=== PATIENT | female | born 1975 | race Caucasian/White ===

== ENCOUNTER 2016-09-24 13:30 | Emergency (ER) | payer MEDICAID ==
[~2016-09-24] VITALS: Ht 157.5 cm; Wt 59.5 kg
[~2016-09-24 13:30] MED LIST: CLON-364 PO; CLON0.5T PO; DOCU-30 PO; IBUP200T64 PO; IBUP800T PO; OXYC-302 PO; [UNRECOGNIZED DRUG - OTHER] PO; tylenol pm PO
[2016-09-24 15:30] VITALS: BP 106/76
== END 2016-09-24 15:39 | disposition home or self-care (01) ==
LOC: ED 15:30
DX: N60.01 Solitary cyst of right breast (principal)
CPT/HCPCS: 76642; 99284

== ENCOUNTER 2017-05-15 08:23 | Emergency (ER) | payer MEDICAID, OTHER ==
[~2017-05-15] VITALS: Ht 157.5 cm; Wt 58.2 kg
[~2017-05-15 08:23] MED LIST changes: +DOCU-131 PO; -DOCU-30 PO; +IBUP-1223 PO; -IBUP800T PO
[2017-05-15 08:27] VITALS: BP 139/96
== END 2017-05-15 10:26 | disposition home or self-care (01) ==
LOC: ED 09:23
DX: N63.20 Unspecified lump in the left breast, unspecified quadrant (principal); N63.10 Unspecified lump in the right breast, unspecified quadrant; Z90.710 Acquired absence of both cervix and uterus
CPT/HCPCS: 76642; 93005; 99284

== ENCOUNTER 2019-01-17 15:08 | Emergency (ER) | payer SELFPAY ==
[~2019-01-17] VITALS: Ht 157.5 cm; Wt 57.3 kg
[~2019-01-17 15:08] MED LIST changes: -CLON-364 PO; +CLON0.5T11 PO
[2019-01-17 15:27] VITALS: BP 130/93
--- NOTE | 2019-01-17 15:30 | NUR ---
PT AMBULATORY TO RME FROM TRIAGE WITH STEADY GAIT. NAD NOTED. CMS INTACT. PULSE NORMAL AND STRONG. SHAYY ESQUIVEL AT BEDSIDE FOR EVALUATION. CALL LIGHT IN REACH. FALL PREACUTIONS IN PLACE.
--- NOTE | 2019-01-17 15:47 | NUR ---
RAD AT BEDSIDE, TO MEDICATE ONCE COMPLETED WITH IMAGING
[2019-01-17] MEDS ORDERED: ACETAMINOPHEN 325 MG TABLET ONE (15:52)
[2019-01-17] MEDS ORDERED: KETOROLAC 30 MG/1 ML ONE (15:53)
[2019-01-17] MEDS ORDERED: ACETAMINOPHEN 325 MG TABLET PO ONE (16:00)
--- NOTE | 2019-01-17 16:06 | NUR ---
UNABLE TO CHART MEDICATIONS IN EMAR, DISCUSSED WITH PHARMACY, ED SUP DESIRAE AND ALVIN LUCAS. ORDERS VERIFIED WITH SHAYY ESQUIVEL ON ORDER LIST. TORADOL HELD AT THIS TIME DUE TO PT REPORT OF TAKING "1000MG OF IBUPROFEN TWICE TODAY ALREADY, THE LITTLE BROWN ROUND IBUPROFEN, NOT TYLENOL." PT MEDICATED WITH 650MG TYLENOL PO ONCE AT THIS TIME PER SHAYY ESQUIVEL, 5 RIGHTS VERIFIED PRIOR TO ADMIN OF MEDICATION. SHAYY ESQUIVEL AT BEDSIDE DISCUSSING TEST RESULTS AND DISCHARGE POC. RATES PAIN 8/10 IN WRIST.
--- NOTE | 2019-01-17 16:25 | NUR ---
REPORT AND CARE TO ELISABETH SR AT THIS TIME. PT TO BE DISCHARGED PER PA ORDER.EMT AT BEDSIDE FOR SPLINT APPLICATION
[2019-01-17] MEDS ORDERED: KETOROLAC 60 MG/2 ML IM ONE (18:00)
== END 2019-01-17 16:36 ==
LOC: ED 16:30
DX: M65.4 Radial styloid tenosynovitis [de Quervain] (principal); Z90.710 Acquired absence of both cervix and uterus
CPT/HCPCS: 29125; 99283

== ENCOUNTER 2020-02-05 21:11 | Emergency (ER) | payer MEDICAID ==
[~2020-02-05] VITALS: Ht 157.5 cm; Wt 56.1 kg
[~2020-02-05 21:11] MED LIST changes: +CLON-364 PO; -CLON0.5T11 PO
--- NOTE | 2020-02-05 21:34 | NUR ---
INTERMITTENT LOWER ABDOMINAL/PELVIC PAIN COMES IN WAVES WITH FEELING SWEATY, GUARDING NO REBOUND TENDERNESS, ABD SOFT NT. NO UTERUS. FEELS NAUSEATED AT TIMES NO VOMITING. CONSTIPATED X1 SMALL HARD BM TODAY. Addendum: 02/05/20 at 2140 by [email or web address] ERP AT BEDSIDE. REQUESTED URINE FROM PT.
[2020-02-05] MEDS ORDERED: MORPHINE SULFATE 4 MG/ML, 1ML ONE ×2 (21:46→23:04)
[2020-02-05] MEDS ORDERED: ONDANSETRON 2MG/ML, 2ML ONE (21:47)
[2020-02-05] MEDS: MORPHINE SULFATE 4 MG/ML, 1ML IVPush PRN ×2 (21:56→23:07)
--- NOTE | 2020-02-05 21:57 | NUR ---
IV STARTED, BLOODS DRAWN AND SENT. MEDICATED PER ORDER. SIDE RAILS UP, CALL CHINO IN REACH. CONT PULSE OX. WAITING FOR URINE, ULTRASOUND.
[2020-02-05] MEDS ORDERED: ONDANSETRON 2MG/ML, 2ML IVPush ONE (22:00)
--- NOTE | 2020-02-05 22:08 | NUR ---
URINE SENT, MEDICATED REPORTS FEELING RELIEF. WAITING FOR U/S. SIDE RAILS UP CALL CHINO IN REACH, CONT PULSE OX ON.
[2020-02-05 22:20] LABS: MICROSCOPIC NOT IND
[2020-02-05 22:36] LABS: BASOPHILS # (AUTO) 0.02 x10^3/uL (0-0.1); BASOPHILS % (AUTO) 0 % (0-1); EOSINOPHILS # (AUTO) 0.11 x10^3/uL (0-0.4); EOSINOPHILS % (AUTO) 1 % (1-7); LYMPHOCYTES # (AUTO) 2.14 x10^3/uL (1-3.4); LYMPHOCYTES % (AUTO) 17 % (22-44); MD NO; MEAN CORPUSCULAR HEMOGLOBIN 31.7 pg (27.0-34.8); MEAN CORPUSCULAR HGB CONC 33.2 g/dL (32.4-35.8); MEAN CORPUSCULAR VOLUME 95.7 fL (80-100); MEAN PLATELET VOLUME 8.4 fL (7.4-10.4); MONOCYTES # (AUTO) 0.71 x10^3/uL (0.2-0.8); MONOCYTES % (AUTO) 6 % (2-9); NEUTROPHILS # (AUTO) 9.65 x10^3/uL (1.8-6.8); NEUTROPHILS % (AUTO) 76 % (42-75); PLATELET COUNT 269 x10^3/uL (130-400); RED BLOOD COUNT 4.46 x10^6/uL (3.82-5.3); RED CELL DISTRIBUTION WIDTH 12.9 % (9.6-15.2)
--- NOTE | 2020-02-05 23:14 | NUR ---
BACK FROM U/S, PAIN RETURNED, SEVERE CRAMPING IN NATURE. MEDICATED WITH 2ND DOSE MORPHINE. VSS. CALL LIGHT IN REACH, SIDE RAILS UP. WAITING FOR MD RE-EVAL/RESULTS.
[2020-02-05 23:15] LABS: ALANINE AMINOTRANSFERASE 17 U/L (12-78); ALBUMIN 3.6 g/dL (3.4-5.0); ANION GAP 8 mmol/L (5-15); CALCIUM 9.3 mg/dL (8.5-10.1); CHLORIDE 108 mmol/L (98-107); CREATININE 0.76 mg/dL (0.55-1.02)
--- NOTE | 2020-02-05 23:24 | NUR ---
UPDATED PT ON POC FOR ABD/PELVIS CT. PT AGREES WITH PLAN. REPORTS "CONTRACTION" LIKE PAIN COMING IN "WAVES" LASTING ONLY FEW SECONDS. UPDATED ERP. WILL CONTINUE TO MONITOR.
[2020-02-05 23:25] LABS: ALKALINE PHOSPHATASE 59 U/L (45-117); BILIRUBIN,TOTAL 0.7 mg/dL (0.2-1.0); TOTAL PROTEIN 7.4 g/dL (6.4-8.2)
[2020-02-05] MEDS ORDERED: OMNIPAQUE 350 MG/ML, 100ML BOTTLE ONE (23:50)
[2020-02-06] MEDS ORDERED: CEFTRIAXONE PMX 1GM/50ML 50 ML IV ONE (00:30)
[2020-02-06] MEDS ORDERED: KETOROLAC 30 MG/1 ML IVPush ONE (00:30)
[2020-02-06] MEDS ORDERED: METRONIDAZOLE PMX 500MG/100ML 100 ML IV ONE (00:30)
[2020-02-06] MEDS ORDERED: KETOROLAC 30 MG/1 ML ONE (00:50)
[2020-02-06] MEDS ORDERED: CEFTRIAXONE PMX 1GM/50ML 50 ML ONE (00:50)
[2020-02-06] MEDS ORDERED: METRONIDAZOLE PMX 500MG/100ML 100 ML ONE (00:50)
--- NOTE | 2020-02-06 01:06 | NUR ---
ABX STARTED, TORADOL FOR PAIN, PT UPDATED BY ERP. PT VERBALIZES UNDERSTANDING OF POC.
[2020-02-06] MEDS ORDERED: DIPHENHYDRAMINE 50 MG/ML, 1ML ONE (01:14)
--- NOTE | 2020-02-06 01:20 | NUR ---
10 MIN AFTER ROCEPHIN STARTED PT C/O ITCHING, LIPS ITCHING, SCRATCHY THROAT. ROCEPHIN DC. ERP INFORMED REQUESTED BENADRYL ORDER. LS CTA, IV NS WO, ON CONT PULSE OX AND NSR.
--- NOTE | 2020-02-06 01:28 | NUR ---
PT REPORTS FEELING LESS ITCHY, LIPS NO LONGER TINGLING. LS CTA, REMAINS 99%RA. IVF INFUSING. CONSULT WITH ERP WILL START FLAGYL ONCE PT IS CLEAR FROM RXN AND STABLE. PT AGREES WITH PLAN. CALL CHINO IN REACH.
[2020-02-06] MEDS ORDERED: DIPHENHYDRAMINE 50 MG/ML, 1ML IVPush ONE (01:30)
--- NOTE | 2020-02-06 01:41 | NUR ---
RR EQUAL AND UNLABORED, O2 SATS 99%RA, PT REPORTS FEELING MUCH BETTER. VSS. LS CTA.
--- NOTE | 2020-02-06 01:53 | NUR ---
ALLERGIC RXN SX GONE. PT FEELS MUCH BETTER. FLAGYL STARTED SLOW. CALL CHINO IN REACH, ON MONITOR. WILL CONTINUE TO MONITOR FOR S/S RXN.
[2020-02-06 02:39] VITALS: BP 124/74
== END 2020-02-06 02:42 | disposition home or self-care (01) ==
LOC: ED 23:15
DX: K57.32 Diverticulitis of large intestine without perforation or abscess without bleeding (principal); Z90.710 Acquired absence of both cervix and uterus
CPT/HCPCS: 36415; 74177; 76830; 80053; 81003; 85025; 96365; 96367; 96375; 96376; 99285; J0696; J1200; J1885; J2270; J2405; Q9967

== ENCOUNTER 2020-02-06 12:50 | Emergency (ER) | payer MEDICAID ==
[~2020-02-06] VITALS: Ht 157.5 cm; Wt 56.5 kg
--- NOTE | 2020-02-06 14:18 | NUR ---
LEG MAN: PT TO ROOM FROM LOBBY
--- NOTE | 2020-02-06 14:20 | NUR ---
PT WAS HERE LAST NIGHT, DIAGNOSED W DIVERTICULITIS. PT PAIN INCREASED. SYMPTOMS UNRESOLVED
[2020-02-06] MEDS ORDERED: SODIUM CHLORIDE 0.9% 1,000 ML IV ONE (14:38)
[2020-02-06 14:44] LABS: BASOPHILS # (AUTO) 0.02 x10^3/uL (0-0.1); BASOPHILS % (AUTO) 0 % (0-1); EOSINOPHILS # (AUTO) 0.01 x10^3/uL (0-0.4); EOSINOPHILS % (AUTO) 0 % (1-7); LYMPHOCYTES # (AUTO) 1.36 x10^3/uL (1-3.4); LYMPHOCYTES % (AUTO) 11 % (22-44); MD NO; MEAN CORPUSCULAR HEMOGLOBIN 31.4 pg (27.0-34.8); MEAN CORPUSCULAR VOLUME 95.2 fL (80-100); MEAN PLATELET VOLUME 7.9 fL (7.4-10.4); MONOCYTES # (AUTO) 0.81 x10^3/uL (0.2-0.8); MONOCYTES % (AUTO) 6 % (2-9); NEUTROPHILS # (AUTO) 10.61 x10^3/uL (1.8-6.8); NEUTROPHILS % (AUTO) 83 % (42-75); PLATELET COUNT 226 x10^3/uL (130-400); RED BLOOD COUNT 3.99 x10^6/uL (3.82-5.3)
[2020-02-06] MEDS ORDERED: METRONIDAZOLE PMX 500MG/100ML 100 ML ONE (14:45)
[2020-02-06] MEDS ORDERED: HYDROmorphone 1 MG/ML, 1ML INJ ONE ×2 (14:46→15:46)
[2020-02-06] MEDS ORDERED: ONDANSETRON 2MG/ML, 2ML ONE (14:46)
[2020-02-06 14:48] LABS: ALANINE AMINOTRANSFERASE 15 U/L (12-78); ALBUMIN 3.4 g/dL (3.4-5.0); ANION GAP 7 mmol/L (5-15); CALCIUM 8.6 mg/dL (8.5-10.1); CHLORIDE 105 mmol/L (98-107); CREATININE 0.76 mg/dL (0.55-1.02)
[2020-02-06 14:50] LABS: ALKALINE PHOSPHATASE 54 U/L (45-117); BILIRUBIN,TOTAL 1.2 mg/dL (0.2-1.0); TOTAL PROTEIN 7.1 g/dL (6.4-8.2)
[2020-02-06] MEDS: HYDROmorphone 2 MG/ML, 1ML IVPush PRN ×2 (14:54→15:50)
[2020-02-06] MEDS ORDERED: ONDANSETRON 2MG/ML, 2ML IVPush ONE (15:00)
[2020-02-06 15:15] LABS: MICROSCOPIC AUTO
--- NOTE | 2020-02-06 15:39 | NUR ---
PT BACK FROM IMAGING
[2020-02-06] MEDS ORDERED: OMNIPAQUE 350 MG/ML, 100ML BOTTLE ONE (15:41)
[2020-02-06] MEDS ORDERED: AMPICILLIN/SULBACTAM 3 GM in SODIUM CHLORIDE 0.9% 100 ML IV ONE (16:00)
--- NOTE | 2020-02-06 16:13 | NUR ---
MEDICATED FOR PAIN. PT FEELING BETTER. ABX INFUSING
[2020-02-06 16:34] VITALS: BP 124/86
[2020-02-06] MEDS ORDERED: METRONIDAZOLE PMX 500MG/100ML 100 ML IV ONE (17:00)
--- NOTE | 2020-02-06 17:14 | NUR ---
Patient/Caregiver given discharge instructions and they have confirmed that they understand the instructions. Patient ambulatory with steady gait.
== END 2020-02-06 17:16 | disposition home or self-care (01) ==
LOC: ED 13:51
DX: K57.32 Diverticulitis of large intestine without perforation or abscess without bleeding (principal); R10.31 Right lower quadrant pain; R10.32 Left lower quadrant pain; K59.00 Constipation, unspecified
CPT/HCPCS: 36415; 74177; 80053; 81001; 83690; 85025; 87086; 96361; 96365; 96375; 96376; 99285; J0295; J1170; J2405; J7030; Q9967

== ENCOUNTER 2020-02-25 20:27 | Inpatient (IN) | payer MEDICAID ==
[~2020-02-25] VITALS: Ht 157.5 cm; Wt 58.6 kg
[2020-02-25] MEDS ORDERED: ONDANSETRON 2MG/ML, 2ML IVPush ONE (21:00)
[2020-02-25] MEDS ORDERED: SODIUM CHLORIDE 0.9% 1,000ML IVBOLUS ONE (21:00)
[2020-02-25] MEDS ORDERED: SODIUM CHLORIDE FLUSH 10ML SYR IVF ONE (21:00)
[2020-02-25] MEDS ORDERED: ONDANSETRON 2MG/ML, 2ML ONE (21:09)
[2020-02-25] MEDS ORDERED: MORPHINE SULFATE 4 MG/ML, 1ML ONE ×2 (21:10→21:41)
[2020-02-25] MEDS: MORPHINE SULFATE 4 MG/ML, 1ML IVPush PRN ×2 (21:13→21:43)
--- NOTE | 2020-02-25 21:14 | NUR ---
PT WITH ABD PAIN THAT STARTED TODAY AFTER RECENTLY BEING TREATED HERE FOR DIVERTICULITIS. PT NOTICIBLE UNCOMFORTABLE, TEARFUL. PIV PLACED AND MEDICATED FOR PAIN PER EMAR. PT ALSO AMBULATORY TO THE BATHROOM FOR URINE SAMPLE.
[2020-02-25 21:33] LABS: MICROSCOPIC AUTO
[2020-02-25 22:18] LABS: BASOPHILS % (AUTO) 1 % (0-1); EOSINOPHILS % (AUTO) 1 % (1-7); LYMPHOCYTES % (AUTO) 26 % (22-44); MEAN CORPUSCULAR HEMOGLOBIN 31.2 pg (27.0-34.8); MEAN CORPUSCULAR HGB CONC 33.8 g/dL (32.4-35.8); MEAN PLATELET VOLUME 8.1 fL (7.4-10.4); MONOCYTES % (AUTO) 7 % (2-9); NEUTROPHILS % (AUTO) 66 % (42-75); PLATELET COUNT 250 x10^3/uL (130-400); RED BLOOD COUNT 4.42 x10^6/uL (3.82-5.3); RED CELL DISTRIBUTION WIDTH 12.9 % (9.6-15.2)
[2020-02-25 22:31] LABS: MD NO
--- NOTE | 2020-02-25 22:43 | NUR ---
AFTER 8 MG MORPHINE, PT STATES PAIN IS MUCH BETTER. PT VISIBILY MORE COMFORTABLE.
[2020-02-25 23:07] LABS: ALANINE AMINOTRANSFERASE 32 U/L (12-78); ALBUMIN 3.1 g/dL (3.4-5.0); ANION GAP 8 mmol/L (5-15); CALCIUM 8.2 mg/dL (8.5-10.1); CHLORIDE 106 mmol/L (98-107); CREATININE 0.66 mg/dL (0.55-1.02)
[2020-02-25 23:10] LABS: ALKALINE PHOSPHATASE 49 U/L (45-117); TOTAL PROTEIN 6.5 g/dL (6.4-8.2)
--- NOTE | 2020-02-25 23:22 | NUR ---
PT TO CT
--- NOTE | 2020-02-25 23:27 | NUR ---
PT BACK FROM CT
--- NOTE | 2020-02-26 00:19 | NUR ---
PT STATES PAIN IS STILL AT AN ACCEPTABLE LEVEL. PT RESTING COMFORTABLY ON GURNEY. AWAITING CT RESULTS.
--- NOTE | 2020-02-26 00:58 | NUR ---
REPORT TO ORIN JACK
[2020-02-26] MEDS ORDERED: CIPROFLOXACIN/PMX 400MG/200ML 200 ML IV ONE (01:00)
[2020-02-26] MEDS ORDERED: METRONIDAZOLE PMX 500MG/100ML 100 ML IV ONE (01:00)
[2020-02-26] MEDS ORDERED: VANCOMYCIN PMX 1GM/200ML 200 ML IV ONE (01:00)
[2020-02-26] MEDS ORDERED: HYDROmorphone 1 MG/ML, 1ML INJ IV ONE (01:00)
[2020-02-26] MEDS ORDERED: VANCOMYCIN PER PHARMACY MC PRN (01:00)
[2020-02-26] MEDS ORDERED: HYDROmorphone 1 MG/ML, 1ML INJ ONE (01:18)
[2020-02-26] MEDS ORDERED: ONDANSETRON 2MG/ML, 2ML IVPush PRN (02:00)
[2020-02-26 02:20] VITALS: BP 120/82
[2020-02-26] MEDS: LACTATED RINGERS 1,000 ML IV SCH ×2 (03:00→13:50)
[2020-02-26] MEDS ORDERED: ONDANSETRON 2MG/ML, 2ML ONE (03:08)
[2020-02-26] MEDS ORDERED: FLU VACCINE PER PHARMACY IM ONE (05:00)
[2020-02-26] MEDS: METRONIDAZOLE PMX 500MG/100ML 100 ML IV SCH ×4 (05:19→23:47)
[2020-02-26] MEDS: morphine SULFATE 10 MG/ML, 1ML IVPush PRN ×5 (05:20→22:45)
[2020-02-26] MEDS ORDERED: LABETALOL 5MG/ML, 20ML IVPush PRN (06:00)
[2020-02-26] MEDS ORDERED: ACETAMINOPHEN 325 MG TABLET PO PRN (06:00)
[2020-02-26] MEDS ORDERED: PROMETHAZINE 25 MG/ML, 1ML IM PRN (06:00)
[2020-02-26 06:38] VITALS: BP 113/77
[2020-02-26] MEDS: CIPROFLOXACIN/PMX 400MG/200ML 200 ML IV SCH ×2 (06:43→18:36)
[2020-02-26] MEDS ORDERED: FLU VACC QS2020-21(6MOS UP)/PF 60MCG/0.5 ML SYR IM-VACC ONE (10:30)
[2020-02-26 13:04] VITALS: BP 97/63
[2020-02-26 18:50] VITALS: BP 114/81
[2020-02-27 00:02] VITALS: BP 114/70
[2020-02-27] MEDS: LACTATED RINGERS 1,000 ML IV SCH ×2 (01:06→12:12)
[2020-02-27] MEDS: METRONIDAZOLE PMX 500MG/100ML 100 ML IV SCH ×2 (04:52→11:36)
[2020-02-27 05:09] LABS: BASOPHILS % (AUTO) 0 % (0-1); EOSINOPHILS % (AUTO) 1 % (1-7); LYMPHOCYTES % (AUTO) 16 % (22-44); MEAN CORPUSCULAR HEMOGLOBIN 32.1 pg (27.0-34.8); MEAN CORPUSCULAR HGB CONC 34.3 g/dL (32.4-35.8); MEAN PLATELET VOLUME 7.9 fL (7.4-10.4); MONOCYTES % (AUTO) 7 % (2-9); NEUTROPHILS % (AUTO) 77 % (42-75); PLATELET COUNT 197 x10^3/uL (130-400); RED BLOOD COUNT 3.89 x10^6/uL (3.82-5.3); RED CELL DISTRIBUTION WIDTH 12.7 % (9.6-15.2)
[2020-02-27 05:17] LABS: ANION GAP 4 mmol/L (5-15); CALCIUM 8.5 mg/dL (8.5-10.1); CHLORIDE 107 mmol/L (98-107)
[2020-02-27 05:18] LABS: CREATININE 0.67 mg/dL (0.55-1.02)
[2020-02-27 05:25] LABS: MD NO
[2020-02-27] MEDS: CIPROFLOXACIN/PMX 400MG/200ML 200 ML IV SCH (06:30)
[2020-02-27 06:55] VITALS: BP 111/82
[2020-02-27] MEDS ORDERED: METR500T PO (11:17)
[2020-02-27] MEDS ORDERED: CIPR500T3 PO (11:17)
[2020-02-27] MEDS ORDERED: LACT1CAP35 PO (11:17)
== END 2020-02-27 12:53 | disposition home or self-care (01) | DRG 392 ==
LOC: ED 21:40 → EDIP 02-26 01:51 → INTOOBSV 02-26 01:51 → OBSVTOIN 02-26 01:51 → 3N 02-26 02:00 → DCLOUNGE 02-27 12:49
PROVIDERS: ADMIT Family Medicine; ATTEND Family Medicine
DX: K57.32 Diverticulitis of large intestine without perforation or abscess without bleeding (principal); E44.1 Mild protein-calorie malnutrition; F12.90 Cannabis use, unspecified, uncomplicated; D72.829 Elevated white blood cell count, unspecified; Z90.710 Acquired absence of both cervix and uterus; Z88.5 Allergy status to narcotic agent; Z83.3 Family history of diabetes mellitus; Z72.89 Other problems related to lifestyle; Z68.23 Body mass index [BMI] 23.0-23.9, adult; Z23 Encounter for immunization
CPT/HCPCS: 36415; 74176; 80048; 80053; 81001; 83690; 85025; 87040; 90686; G0378; J0744; J1170; J2405; J2270; J7030; J7120

== ENCOUNTER 2020-04-02 14:04 | Emergency (ER) | payer MEDICAID ==
[~2020-04-02] VITALS: Ht 157.5 cm; Wt 77.7 kg
[~2020-04-02 14:04] MED LIST changes: +CIPR500T3 PO; +LACT1CAP35 PO; +METR500T PO
[2020-04-02 14:18] VITALS: BP 133/102
--- NOTE | 2020-04-02 16:06 | NUR ---
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
== END 2020-04-02 16:09 | disposition left against medical advice (07) ==
LOC: ED 16:00
DX: R06.00 Dyspnea, unspecified (principal); R05 Cough; R11.2 Nausea with vomiting, unspecified; R25.1 Tremor, unspecified; R07.89 Other chest pain
CPT/HCPCS: 93005; 99283

== ENCOUNTER 2020-05-31 20:52 | Emergency (ER) | payer MEDICAID ==
[~2020-05-31] VITALS: Ht 157.5 cm; Wt 60.1 kg
[2020-05-31] MEDS ORDERED: DIPHENHYDRAMINE 50 MG/ML, 1ML ONE (21:09)
[2020-05-31] MEDS ORDERED: methylPREDNISolone SOD SUCC 125 MG/2 ML ONE (21:09)
--- NOTE | 2020-05-31 21:25 | NUR ---
Patient presents to ER c/o throat swelling, "feels like there's a turtle in my throat," facial redness. Symptoms started approx 20 min after taking cipro and flagyl. Patient states she has used these antibiotics in the past for tx of diverticulitis. Patient is in NAD. REspirations even and unlabored. Airway clear and patent; patient able to maintain own secretions and swallow appropriately.
[2020-05-31] MEDS ORDERED: methylPREDNISolone SOD SUCC 125 MG/2 ML IVPush ONE (21:30)
[2020-05-31] MEDS ORDERED: DIPHENHYDRAMINE 50 MG/ML, 1ML IVPush ONE (21:30)
--- NOTE | 2020-05-31 22:54 | NUR ---
Patient given discharge instructions and they have confirmed that they understand the instructions. Patient ambulatory with steady gait.
[2020-05-31 22:55] VITALS: BP 129/76
== END 2020-05-31 22:57 | disposition home or self-care (01) ==
LOC: ED 21:25
DX: T78.49XA Other allergy, initial encounter (principal); K57.32 Diverticulitis of large intestine without perforation or abscess without bleeding; J98.01 Acute bronchospasm; Z90.710 Acquired absence of both cervix and uterus
CPT/HCPCS: 96374; 96375; 99284; J1200; J2930

== ENCOUNTER 2020-07-04 15:19 | Emergency (ER) | payer MEDICAID ==
[~2020-07-04] VITALS: Ht 157.5 cm; Wt 59.8 kg
[~2020-07-04 15:19] MED LIST changes: -CIPR500T3 PO; +CIPR500T4 PO; -OXYC-302 PO; +OXYC1TAB14 PO
--- NOTE | 2020-07-04 15:44 | NUR ---
pt in [facility] with no signs or symptoms of acute distress noted respirations even and unlabored with r knee elevated on blankets and with ice pack in place. tech in room to transport pt in [facility] to imaging, bed rails up bilaterally.
[2020-07-04] MEDS ORDERED: HYDROcodone/APAP 5/325 TABLET PO ONE (16:00)
--- NOTE | 2020-07-04 16:23 | NUR ---
PT IN [place] WITH NO SIGNS OR SYMPTOMS OF ACUTE DISTRESS NOTED RESPIRATIONS EVEN AND UNLABORED PLAYING ON CELL PHONE STATES THAT PAIN IS DOWN TO 6/10. BED RAILS UP BILATERALLY
[2020-07-04 16:48] VITALS: BP 141/97
== END 2020-07-04 16:53 | disposition home or self-care (01) ==
LOC: ED 16:17
DX: G89.11 Acute pain due to trauma (principal); M25.561 Pain in right knee; Z90.710 Acquired absence of both cervix and uterus; W10.8XXA Fall (on) (from) other stairs and steps, initial encounter; Y93.89 Activity, other specified; Y92.89 Other specified places as the place of occurrence of the external cause; Y99.8 Other external cause status
CPT/HCPCS: 99283

== ENCOUNTER 2020-12-27 09:27 | Inpatient (IN) | payer MEDICAID ==
[~2020-12-27] VITALS: Ht 157.5 cm; Wt 58.0 kg
[2020-12-27] MEDS ORDERED: ONDANSETRON 2MG/ML, 2ML IVPush ONE (10:00)
[2020-12-27] MEDS ORDERED: SODIUM CHLORIDE FLUSH 10ML SYR IVF ONE (10:00)
[2020-12-27] MEDS ORDERED: SODIUM CHLORIDE 0.9% 1,000ML IVBOLUS ONE (10:00)
[2020-12-27] MEDS ORDERED: ONDANSETRON 2MG/ML, 2ML ONE (10:04)
[2020-12-27] MEDS ORDERED: MORPHINE SULFATE 4 MG/ML, 1ML ONE ×2 (10:04→13:12)
[2020-12-27 10:18] LABS: BASOPHILS % (AUTO) 0 % (0-1); EOSINOPHILS % (AUTO) 0 % (1-7); LYMPHOCYTES % (AUTO) 7 % (22-44); MEAN CORPUSCULAR HEMOGLOBIN 32.8 pg (27.0-34.8); MEAN CORPUSCULAR HGB CONC 34.9 g/dL (32.4-35.8); MEAN PLATELET VOLUME 7.8 fL (7.4-10.4); MONOCYTES % (AUTO) 4 % (2-9); NEUTROPHILS % (AUTO) 89 % (42-75); PLATELET COUNT 227 x10^3/uL (130-400); RED BLOOD COUNT 4.18 x10^6/uL (3.82-5.3); RED CELL DISTRIBUTION WIDTH 12.6 % (9.6-15.2)
[2020-12-27 10:28] LABS: ALANINE AMINOTRANSFERASE 16 U/L (12-78); ALBUMIN 3.5 g/dL (3.4-5.0); ANION GAP 7 mmol/L (5-15); CALCIUM 8.6 mg/dL (8.5-10.1); CHLORIDE 105 mmol/L (98-107)
[2020-12-27 10:30] LABS: ALKALINE PHOSPHATASE 65 U/L (45-117); BILIRUBIN,TOTAL 0.6 mg/dL (0.2-1.0); TOTAL PROTEIN 7.4 g/dL (6.4-8.2)
--- NOTE | 2020-12-27 10:32 | NUR ---
PT CAME IN [place] SUDDEN ONSET PAINFUL DIARRHEA AT ABOUT 0300 TODAY. PT REPORTS SHE IS TAKING ABX FOR A RECENTLY MASECTOMY AND LYMPHNODE REMOVAL DUE TO BREAST CANCER. PT WAS DX ABOUT A MONTH AGO. PT PROVIDED STOOL SAMPLE. RESTING IN [facility]. MEDICATED PER JUL. CONNECTED TO MONITORS
[2020-12-27] MEDS: MORPHINE SULFATE 4 MG/ML, 1ML IVPush PRN ×2 (10:33→13:16)
[2020-12-27] MEDS ORDERED: OMNIPAQUE 350 MG/ML, 100ML BOTTLE ONE (11:00)
[2020-12-27 11:18] LABS: CLOSTRIDIUM DIFFICILE ANTIGEN POSITIVE; CLOSTRIDIUM DIFFICILE TOXIN NEGATIVE (Negative)
[2020-12-27 11:51] LABS: MICROSCOPIC AUTO
[2020-12-27] MEDS ORDERED: METRONIDAZOLE PMX 500MG/100ML 100 ML IV ONE (12:30)
[2020-12-27] MEDS ORDERED: METRONIDAZOLE PMX 500MG/100ML 100 ML ONE (12:35)
[2020-12-27] MEDS: METRONIDAZOLE PMX 500MG/100ML 100 ML IV SCH ×2 (13:55→22:12)
[2020-12-27] MEDS ORDERED: ONDANSETRON ODT 4 MG PO PRN (14:00)
[2020-12-27] MEDS ORDERED: ONDANSETRON 2MG/ML, 2ML IVPush PRN (14:00)
[2020-12-27] MEDS: VANCOMYCIN 50 MG/ML ORAL SUSP PO SCH ×2 (16:29→19:55)
[2020-12-27] MEDS: LACTATED RINGERS 1,000 ML IV SCH (16:32)
[2020-12-27] MEDS: LACTOBACILLUS CHEW TABLET PO SCH ×2 (16:33→19:55)
[2020-12-27] MEDS: CIPROFLOXACIN/PMX 400MG/200ML 200 ML IV SCH (16:37)
[2020-12-27] MEDS: DICYCLOMINE 10 MG CAPSULE PO PRN (18:29)
[2020-12-27] MEDS: ACETAMINOPHEN 325 MG TABLET PO PRN (19:55)
[2020-12-27] MEDS: ENOXAPARIN 40 MG/0.4 ML SQ SCH (19:55)
[2020-12-27 20:05] VITALS: BP 99/68
[2020-12-27 20:10] VITALS: BP 104/71
[2020-12-28] MEDS: CIPROFLOXACIN/PMX 400MG/200ML 200 ML IV SCH ×2 (02:03→15:37)
[2020-12-28] MEDS: VANCOMYCIN 50 MG/ML ORAL SUSP PO SCH ×4 (02:03→20:01)
[2020-12-28] MEDS: ACETAMINOPHEN 325 MG TABLET PO PRN ×2 (02:09→07:35)
[2020-12-28] MEDS: DICYCLOMINE 10 MG CAPSULE PO PRN (05:05)
[2020-12-28 05:24] LABS: BASOPHILS % (AUTO) 0 % (0-1); EOSINOPHILS % (AUTO) 1 % (1-7); LYMPHOCYTES % (AUTO) 18 % (22-44); MEAN CORPUSCULAR HEMOGLOBIN 32.2 pg (27.0-34.8); MEAN CORPUSCULAR HGB CONC 34.1 g/dL (32.4-35.8); MEAN PLATELET VOLUME 7.6 fL (7.4-10.4); MONOCYTES % (AUTO) 10 % (2-9); NEUTROPHILS % (AUTO) 70 % (42-75); PLATELET COUNT 178 x10^3/uL (130-400); RED BLOOD COUNT 3.79 x10^6/uL (3.82-5.3); RED CELL DISTRIBUTION WIDTH 12.6 % (9.6-15.2)
[2020-12-28 05:28] LABS: ANION GAP 5 mmol/L (5-15); CALCIUM 7.9 mg/dL (8.5-10.1); CHLORIDE 109 mmol/L (98-107); CREATININE 0.57 mg/dL (0.55-1.02)
[2020-12-28] MEDS: METRONIDAZOLE PMX 500MG/100ML 100 ML IV SCH ×2 (06:00→17:20)
[2020-12-28] MEDS: LACTOBACILLUS CHEW TABLET PO SCH ×3 (07:35→20:01)
[2020-12-28 08:16] VITALS: BP 126/78
[2020-12-28 14:19] VITALS: BP 109/72
[2020-12-28] MEDS: OXYcodone IR 5MG TABLET PO PRN ×2 (15:43→22:11)
[2020-12-28] MEDS: ENOXAPARIN 40 MG/0.4 ML SQ SCH (20:02)
[2020-12-28] MEDS: LACTATED RINGERS 1,000 ML IV SCH (20:02)
[2020-12-28 20:03] VITALS: BP 127/89
[2020-12-29] MEDS: METRONIDAZOLE PMX 500MG/100ML 100 ML IV SCH ×2 (01:06→09:01)
[2020-12-29] MEDS: VANCOMYCIN 50 MG/ML ORAL SUSP PO SCH ×2 (02:14→09:01)
[2020-12-29] MEDS: CIPROFLOXACIN/PMX 400MG/200ML 200 ML IV SCH (02:14)
[2020-12-29 03:30] VITALS: BP 111/73
[2020-12-29 07:18] VITALS: BP 117/87
[2020-12-29] MEDS: LACTOBACILLUS CHEW TABLET PO SCH (09:01)
[2020-12-29] MEDS ORDERED: CIPR500T4 PO (11:31)
[2020-12-29] MEDS ORDERED: LACT1CAP35 PO (11:31)
[2020-12-29] MEDS ORDERED: METR500T PO (11:31)
[2020-12-29] MEDS ORDERED: VANC1VIA36 PO (11:31)
== END 2020-12-29 12:17 | disposition home or self-care (01) | DRG 372 ==
LOC: ED 11:58 → EDIP 13:37 → 3N 14:17
PROVIDERS: ADMIT Internal Medicine; ATTEND Internal Medicine
DX: A04.72 Enterocolitis due to Clostridium difficile, not specified as recurrent (principal); K57.32 Diverticulitis of large intestine without perforation or abscess without bleeding; E87.1 Hypo-osmolality and hyponatremia; F12.90 Cannabis use, unspecified, uncomplicated; G47.00 Insomnia, unspecified; C50.911 Malignant neoplasm of unspecified site of right female breast; F41.9 Anxiety disorder, unspecified; Z90.11 Acquired absence of right breast and nipple; Z90.710 Acquired absence of both cervix and uterus; Z83.3 Family history of diabetes mellitus; Z79.899 Other long term (current) drug therapy; Z88.6 Allergy status to analgesic agent; Z88.8 Allergy status to other drugs, medicaments and biological substances
CPT/HCPCS: 36415; 89055; 96361; 96374; 99285; J3370; 74177; 80048; 80053; 81001; 83690; 85025; 87324; 87493; G0378; J0744; J2405; Q9967; J2270; J7030; J7120